=== PATIENT | male | born 1950 | race Hispanic/Latino ===

== ENCOUNTER → 2018-07-23 | Day surgery (SDC) | payer OTHER ==
[2018-07-20 12:31] LABS: BASOPHILS # (AUTO) 0.1 (0.0-0.1); BASOPHILS % 0.6 % (0.0-1.0); EOSINOPHILS # (AUTO) 0.4 (0.0-0.4); EOSINOPHILS % 3.1 % (0.0-6.0); HEMATOCRIT 43.6 % (38.2-49.6); HEMOGLOBIN 14.6 g/dL (14.0-18.0); LYMPHOCYTES # (AUTO) 6.6 (1.0-3.2); LYMPHOCYTES % 59.2 % (18.0-39.1); MEAN CORPUSCULAR HEMOGLOBIN 30.5 pg (28-32); MEAN CORPUSCULAR HGB CONC 33.5 g/dL (31-35); MONOCYTES # (AUTO) 0.7 (0.2-0.8); MONOCYTES % 6.3 % (4.4-11.3); NEUTROPHILS # (AUTO) 3.4 (2.1-6.9); NEUTROPHILS % 30.6 % (38.7-80.0); PLATELET COUNT 243 x10e3/uL (140-360); RED BLOOD COUNT 4.79 x10e6/uL (4.3-5.7); RED CELL DISTRIBUTION WIDTH 11.9 % (11.7-14.4)
[2018-07-20 12:56] LABS: ANION GAP 14.3 mmol/L (8-16); BLOOD UREA NITROGEN 18 mg/dL (7-26); BUN/CREATININE RATIO 20 (6-25); CALCIUM 9.6 mg/dL (8.4-10.2); CARBON DIOXIDE 24 mmol/L (22-29); CHLORIDE 107 mmol/L (98-107); CREATININE, SERUM 0.91 mg/dL (0.72-1.25); EST GLOMERULAR FILTRATION RATE > 60 ML/MIN (60-); GLUCOSE 78 mg/dL (74-118); POTASSIUM 4.3 mmol/L (3.5-5.1); SODIUM 141 mmol/L (136-145)
--- NOTE | 2018-07-20 14:23 | Diagnostic Imaging Report ---
Frontal and lateral views of the chest. HISTORY: Right inguinal hernia, preop x-ray COMPARISON: None available. DISCUSSION: Lungs: Low lung volumes result in bibasilar vascular crowding, accentuation of the pulmonary interstitial markings, central pulmonary vasculature, and the cardiac silhouette. Allowing for these limitations, the findings are as follows: Prominent central interstitial markings, accentuated by the low lung volumes . Slightly more confluent patchy left basilar opacity on the frontal view, which partially obscures the left heart border. Pleura: No pleural effusion or pneumothorax. Heart and mediastinum: The central pulmonary vasculature are mildly prominent. Bones: Mild to moderate multilevel degenerative disc changes. IMPRESSION: 1. Pulmonary vascular congestion and mild interstitial edema versus findings which could be seen in the setting of a nonspecific bronchitis. 2. Superimposed left basilar atelectasis versus pneumonia or aspiration in the appropriate clinical setting, which appears unlikely given the provided history. Signed by: Dr. Bernardo Loving D.O., M.M.M. on 07/20/2018 2:19 PM
[2018-07-20 14:34] LABS: EOSINOPHILS % (MANUAL) 4 % (0-7); LYMPHOCYTES % (MANUAL) 63 % (19-48); MONOCYTES % (MANUAL) 5 % (3.4-9.0); NEUTROPHILS % (MANUAL) 28 % (40-74)
[2018-07-20 14:35] LABS: PLATELET ESTIMATE ADEQUATE; PLATELET MORPHOLOGY COMMENT NORMAL; RBC MORPHOLOGY COMMENT NORMAL
[~2018-07-23] MED LIST: ACETAMINOPHEN/CODEINE 300MG - 30MG TAB ONE; BUPIVACAINE 0.25%/EPI 30ML SDV INJ ONE; CEFAZOLIN SOD 1 GM VIAL ONE; DEXAMETHASONE SOD PHOS INJ 4 MG/ML VIAL ONE; FENTANYL CITRATE/PF 100MCG/2 ML INJ ONE; GLYCOPYRROLATE INJ 1MG/ 5 ML SYR ONE; LABETALOL HCL 5 MG/ML 20ML VIAL ONE; LIDOCAINE HCL 2% LOCAL INJ 5 ML SDV VIAL INJ ONE; MIDAZOLAM HCL 2 MG/2 ML VIAL ONE; NEOSTIGMINE 5 MG/5ML SYR ONE; ONDANSETRON HCL INJ 2 MG/ML VIAL ONE; PROPOFOL IV EMULSION 10 MG/ML 20 ML VIAL ONE; ROCURONIUM BROMIDE 10 MG/ML 5ML VIAL ONE; SEVOFLURANE INHAL SOLN 250 ML PEN BTL ONE; SIMVASTATIN40 MG PO
--- OUTSIDE RECORDS SUMMARY | 2018-07-23 06:42 | XMS REPORT ---
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 Allergies, Adverse Reactions, Alerts This patient has no known allergies or adverse reactions. Medications This patient has no known medications. Results Test Description Test Time Test Comments Text Results Atomic Results Result Comments CHEST 2 VIEWS 2018-07-20 14:16:00 [place] [id number] Patient Name: VERA BROWN MR #: [id number] : 1950 Age/Sex: 68/M Req #: [id number] Adm Physician: Ordered by: GUSTAVO BARRETT MD Report #: [id number] Location: OR Room/Bed: Procedure: [id number] DX/CHEST 2 VIEWS Exam Date: 07/20/18 Exam Time: 1220 REPORT STATUS: Signed Frontal and lateral views of the chest. HISTORY: Right inguinal hernia, preop x-ray COMPARISON: None available. DISCUSSION: Lungs: Low lung volumes result in bibasilar vascular crowding, accentuation of the pulmonary interstitial markings, central pulmonary vasculature, and the cardiac silhouette. Allowing for these limitations, the findings are as follows: Prominent central interstitial markings, accentuated by the low lung volumes . Slightly more confluent patchy left basilar opacity on the frontal view, which partially obscures the left heart border. Pleura: No pleural effusion or pneumothorax. Heart and mediastinum: The central pulmonary vasculature are mildly prominent. Bones: Mild to moderate multilevel degenerative disc changes. IMPRESSION: 1. Pulmonary vascular congestion and mild interstitial edema versus findings which could be seen in the setting of a nonspecific bronchitis. 2. Superimposed left basilar atelectasis versus pneumonia or aspiration in the appropriate clinical setting, which appears unlikely given the provided history. Signed by: Dr. Eloisa Loving D.O., M.M.M. on 07/20/2018 2:19 PM Dictated By: ELOISA LOVING DO 18 Transcribed By: BLAS on 07/20/181418 COPY TO: GUSTAVO BARRETT MD
[2018-07-23 14:00] VITALS: BP 123/70
--- NOTE | 2018-07-23 14:37 | Operative Report ---
DATE OF PROCEDURE: July 23, 2018 PREOPERATIVE DIAGNOSIS: Bilateral inguinal hernias. POSTOPERATIVE DIAGNOSIS: Bilateral inguinal hernias. PROCEDURE PERFORMED: Repair of right inguinal hernia with UltraPro hernia system. ANESTHESIA: General endotracheal. ESTIMATED BLOOD LOSS: Minimal. DRAINS: None. COMPLICATIONS: None. INDICATIONS AND FINDINGS: The patient is a 68-year-old male complaining of pain after lifting several days ago and physical examination revealed bilateral groin hernias arising larger than the left. INTRAOPERATIVE FINDINGS: Patient had a direct right inguinal hernia with a blowout of the right inguinal canal floor. There was no indirect hernia sac. There was a lipoma of the cord that was excised. DESCRIPTION OF PROCEDURE: With the patient lying in the operative table in the supine position after administration of general anesthesia, he was prepped and draped for repair of right inguinal hernia. Preemptive anesthesia was given with 0.25% Marcaine with epinephrine as an ilioinguinal nerve block and an incisional nerve block. A transverse groin incision was made deep into the skin, subcutaneous tissues, Xenia's fascia until the external aponeurosis was identified. This was incised along the course of its fibers transecting the external inguinal ring. Medial and lateral leads were developed. The cord was mobilized around the pubic tubercle with a [place] drain and then the cremaster vein was incised. The cord was explored. There was a lipoma of the cord that was excised. Anterior of the cord was fatty, but there was no indirect hernia sac. We then incised the transversalis fascia and reduced the herniation of properitoneal fat into the retroperitoneal space and created with blunt dissection a pocket to accommodate the UltraPro hernia system, oval type. The mesh was deployed with the underlay part of the mesh over the direct space and the overlay part of the mesh over the inguinal canal floor. A slit was made to accommodate the cord and the mesh was secured to local tissues using a series of interrupted 2-0 Ethibond sutures that were also used to close the slit that was made to accommodate the cord. The wound was irrigated. Bleeding points cauterized. Another local block was given with 0.25% Marcaine with epinephrine and then after verification that the sponge and instrument count was correct, the wound was closed in layers using 0 Vicryl for the external aponeurosis, 2-0 catgut for the Xenia's fascia and soft tissues and the skin was closed with a combination of 3-0 silk and susan. Another 10 mL of Marcaine was given at the end of procedure to the incision. A total of 50 mL was given throughout the case. The patient tolerated the procedure well and was taken to recovery room in stable condition. Job#: [id number]
== END | disposition home or self-care (01) ==
LOC: OR 06:40
PROVIDERS: ATTEND Surgery
DX: K40.20 Bilateral inguinal hernia, without obstruction or gangrene, not specified as recurrent (principal); D17.6 Benign lipomatous neoplasm of spermatic cord; I25.10 Atherosclerotic heart disease of native coronary artery without angina pectoris; I25.2 Old myocardial infarction; R00.1 Bradycardia, unspecified; E66.9 Obesity, unspecified; Z01.810 Encounter for preprocedural cardiovascular examination; Z01.812 Encounter for preprocedural laboratory examination; Z01.818 Encounter for other preprocedural examination; Z68.36 Body mass index [BMI] 36.0-36.9, adult; Z87.891 Personal history of nicotine dependence
CPT/HCPCS: 36415; 49505; 71046; 80048; 85025; 93005; C1781; J0690; J1100; J2001; J2250; J2405; J2704; J3490 ×2